=== PATIENT | female | born 1960 | race Caucasian/White ===

== ENCOUNTER 2019-05-16 10:43 | Observation (INO) ==
[2019-05-16 12:03] LABS: BASO# 0.01 X1000 (0.0-0.2); BASO% 0.1 % (0.0-0.8); EOS# 0.05 X1000 (0.0-0.7); EOS% 0.7 % (0.0-10.0); HEMATOCRIT 39.8 % (37.0-47.0); HEMOGLOBIN 13.5 g/dL (12.0-16.0); LYMPH# 2.15 X1000 (1.2-3.4); LYMPH% 30.4 % (20.5-51.1); MCH 28.3 PG (27-31); MCHC 33.9 g/dL (33-37); MCV 83.4 FL (81-99); MONO# 0.59 X1000 (0.11-0.59); MONO% 8.3 % (1.7-9.3); MPV 10.8 FL (7.4-10.4); NEUT# 4.27 X1000 (1.4-6.5); NEUT% 60.5 % (42.2-75.2); PLT 246 X1000 (130-400); RBC 4.77 XMIL (4.2-5.4); RDW 13.2 % (11.5-14.5); WBC 7.07 X1000 (4.8-10.8)
[2019-05-16 12:27] LABS: AGAP 14; ALB/GLOB RATIO 1.3; ALBUMIN 4.2 g/dL (3.5-5.0); BUN 11 mg/dL (8-22); CALCIUM 8.6 mg/dL (8.8-10.2); CHLORIDE 101 mmol/L (98-107); COSMO 280; CREATININE 0.7 mg/dL (0.5-0.9); ESTIMATED GFR > 60; GLUCOSE 90 mg/dL (70-104); GOT 16 U/L (10-30); GPT 17 U/L (10-36); POTASSIUM 3.9 mmol/L (3.5-5.1); SODIUM 141 mmol/L (136-145); TCO2 26 mmol/L (25-35); TOTAL BILIRUBIN 0.76 mg/dL (0.20-1.00); TOTAL PROTEIN 7.4 g/dL (6.3-8.3)
[2019-05-16 12:49] LABS: URINE SOURCE CLEAN CATCH
[2019-05-16 12:52] LABS: BILIRUBIN URINE NEGATIVE (NEGATIVE); BLOOD URINE SMALL (NEGATIVE); COLOR YELLOW; GLUCOSE URINE NEGATIVE (NEGATIVE); KETONE URINE TRACE mg/dL (NEGATIVE); LEUKOCYTES URINE LARGE (NEGATIVE); NITRITE URINE NEGATIVE (NEGATIVE); PH URINE 5.5; PROTEIN URINE 30 mg/dL (NEGATIVE); SP GRAVITY URINE 1.018; TURBIDITY URINE HAZY (CLEAR); UROBILINOGEN URINE NORMAL (NORMAL)
[2019-05-16 13:04] LABS: UR EPITHELIAL CELLS <10 /HPF (<10); URINE BACTERIA NEGATIVE /HPF; URINE RBC <10 /HPF (<10); URINE WBC TNTC /HPF (<10)
[2019-05-16 13:05] LABS: URINE YEAST NONE SEEN
[2019-05-16 13:37] LABS: ALKALINE PHOSPHATASE 77 U/L (32-104)
--- NOTE | 2019-05-16 14:37 | Diag Imaging Result Doc PS360 ---
EXAM: CT ABD/PELVIS W/IV CONT ONLY 05/16/2019 HISTORY: LLQ pain, recent colonoscopy TECHNIQUE: This exam was performed using automated exposure control, adjustment of mA or kV according to patient size, and/or use of iterative reconstruction technique. COMMENT: There is a calcified pleural-based nodule in the right lower lobe. There are no previous studies. The aorta is normal in caliber. The mesenteric and renal arteries are patent. There is no evidence of significant adenopathy. There are no apparent gallstones. There is no evidence of nephrolithiasis. The liver, spleen, adrenal glands, and pancreas are within normal limits. There are multiple parapelvic cysts present in the left kidney. There is no evidence of hydronephrosis or mass. There is diverticulosis in the descending and sigmoid colon. Some inflammatory change is seen around the distal descending colon. Pelvis: There is an enlarged and inflamed appearing diverticulum arising from the sigmoid colon which is in direct contact with the dome of the urinary bladder. There is gas within the bladder. The appendix is surgically absent. There is some mucosal thickening present in the distal sigmoid of uncertain etiology. There has been hysterectomy. There is degenerative facet arthropathy in the lumbar spine particularly at the L5-S1 level. There are degenerative disc changes. IMPRESSION: Diverticulosis coli with diverticulitis in the distal descending and sigmoid colon and possible colovesical fistula. Electronically signed by Aris Cotto 05/16/2019 2:35 PM
--- NOTE | 2019-05-16 15:03 | PROVIDER DOCUMENTATION ---
This chart was entered by Akosua Darling Scribe, acting as scribe for Juve Ladd MD. HPI-Abdominal Pain/GI Problem - General Chief Complaint: Abdominal Pain Stated Complaint: LEFT SIDE PAIN Time Seen by Provider: 05/16/19 11:07 Source: patient Home Medications: Home Medication List Medication Instructions Recorded Confirmed Last Taken Type Amoxicillin [Amoxil] 05/16/19 05/16/19 Unknown History - History of Present Illness-ABD Nature of Presenting Problems: 58 yowf presents to the ed with c/o LLQ pain and was recently dx with UTI and is on ABX, pt was seen by dr sellers on 05/13/19 and had colonscopy and polectomy done. pt sts onset of LLQ p[ain was this am and called dr sellers office and was told to come to ed for a ct. pt has noted since sx decreased appetiite and diarrhea but thinks that is due to abx. pt on examis nontoxic in appearance and describes pain as a soreness to LLQ Abdominal Pain Onset Location: reports: LLQ Pain Radiation: reports: LUQ Quality of Pain: reports: aching (soreness) Severity in ED: reports: mild Onset/Duration: reports: this morning Timing: reports: still present, constant Activities at Onset: reports: other (recent sx) Exposure to sick contacts?: No Modifying Factors: improves with: rest. worse with: movement, palpation Associated Symptoms: reports: diarrhea, loss of appetite. denies: back/neck pain, chest pain, cough, diaphoresis, fever/chills, headaches, shortness of b reath, vomiting, weakness, trouble walking Last BM: this morning Dark Stools Present?: reports: none noticed Rectal Bleeding: reports: none # of Diarrhea Episodes: 2 (on current abx) Rectal Pain: reports: none # of Vomiting Episodes: 0 Emesis Description: reports: none Bruising or Bleeding Gums?: No Similar Symptoms Previously?: Yes Recently seen or treated by another doctor?: Yes (dr sellers 05/13/19) Review of Systems - Adult - REVIEW OF SYSTEMS - ADULT Constitutional: denies: chills, fever Eyes: reports: no symptoms reported Ears, Nose, Mouth & Throat: reports: no symptoms reported Cardiovascular: denies: chest pain, palpitations, syncope Respiratory: denies: cough, shortness of breath, wheezing Gastrointestinal: reports: see HPI, abdominal pain, poor appetite. denies: nausea, vomiting Genitourinary: reports: see HPI, frequent UTI's Musculoskeletal: reports: no symptoms reported Integumentary: reports: no symptoms reported Neurological: denies: dizziness/vertigo, headache/migraines Psychiatric: reports: no symptoms reported Endocrine: reports: no symptoms reported Hematologic/Lymphatic: reports: no symptoms reported Allergic/Immunologic: reports: no symptoms reported All Other Systems: Reviewed and Negative Past History - Adult - PAST MEDICAL HISTORY-ADULT Review of Records: reports: Old Records Reviewed, Nursing Assessment Review, Medications Reviewed, Social history reviewed & non-contributory. Major Childhood Illnesses: reports: denies history Cardiovascular: reports: denies history Respiratory: reports: denies history Gastrointestinal: reports: denies history Obstetrical/Gynecological: reports: denies history Genitourinary: reports: denies history Musculoskeletal: reports: denies history Hand Dominance: Right Handed Neurological: reports: denies history Psychiatric: reports: denies history Endocrine/Immune: reports: denies history Other Conditions: reports: denies history - PRIOR SURGERIES/PROCEDURES Surgical/Procedure History: reports: recent surgery (had colonscopy and polpectomy on 05/13/19) - IMMUNIZATION STATUS Childhood Immunizations: See Nurse Assessment Flu Vaccine: See Nurse Assessment - FAMILY HISTORY Family History: reviewed, not pertinent - SOCIAL HISTORY Smoking: denies Substance Use: denies Living Situation: family Physical Exam-General - PHYSICAL EXAM-ADULT Initial Vital Signs Reviewed: Yes - CONSTITUTIONAL General Appearance: alert, mild distress, obese - EYES Eyes: PERRL/EOMI, pink conjunctivae - HEAD, EARS, NOSE, MOUTH & THROAT HENMT: normocephalic/atraumatic, moist mucous membranes, normal ENT inspection - NECK Neck: non-tender, full range of motion, supple, normal inspection - RESPIRATORY Respiratory: chest non-tender, lungs clear, normal breath sounds - CARDIOVASCULAR Cardiovascular: normal peripheral pulses, regular rate, rhythm - GASTROINTESTINAL (ABDOMEN) Abdominal Exam: normal bowel sounds, soft, no organomegaly, no pulsatile mass, guarding (LLQ), tenderness (LLQ). negative: distended, rigid, rebound - LYMPHATIC Lymphatic: no adenopathy - MUSCULOSKELETAL Back Exam: normal inspection, no CVA tenderness, no vertebral tenderness Extremity: normal range of motion, non-tender, normal inspection, no pedal edema , no calf tenderness, normal capillary refill - SKIN Integumentary: normal color, normal turgor, warm/dry - NEUROLOGIC Neurologic: grossly normal, no motor/sensory deficits - PSYCHIATRIC Psych/Mental Status: normal mood/affect, normal thought content, normal thought process, oriented x 3 Progress - PLAN OF CARE/RESULTS Progress/Plan/Lab Results: Vital Signs - 8 hr 05/16/19 10:46 Temperature 98 F Pulse Rate 75 Respiratory Rate 20 Blood Pressure 144/94 O2 Sat by Pulse Oximetry 97 Laboratory Results - last 24 hr 05/16/19 05/16/19 11:06 11:06 WBC 7.07 RBC 4.77 Hgb 13.5 Hct 39.8 MCV 83.4 MCH 28.3 MCHC 33.9 RDW Std Deviation 13.2 Plt Count 246 MPV 10.8 H Immature Gran % (Auto) 0.0 Neut % (Auto) 60.5 Lymph % (Auto) 30.4 [place] % (Auto) 8.3 Eos % (Auto) 0.7 Baso % (Auto) 0.1 Immature Gran # (Auto) 0.00 Neut # (Auto) 4.27 Lymph # (Auto) 2.15 [place] # (Auto) 0.59 Eos # (Auto) 0.05 Baso # (Auto) 0.01 Sodium 141 Potassium 3.9 Chloride 101 Carbon Dioxide 26 Anion Gap 14 BUN 11 Creatinine 0.7 Estimated GFR/1.73 m2 > 60 BUN/Creatinine Ratio 16 Glucose 90 Calculated Osmolality 280 Calcium 8.6 L Total Bilirubin 0.76 AST 16 ALT 17 Total Protein 7.4 Albumin 4.2 Globulin 3.2 Albumin/Globulin Ratio 1.3 Orders Category Date Time Status CT ABD/PELVIS W/IV CONT ONLY [CT] Stat Exams 05/16/19 11:25 Ordered CBC WITH DIFF [HEME] Stat Lab 05/16/19 11:06 Completed COMPREHENSIVE METABOLIC PANEL [CHEM] Stat Lab 05/16/19 11:06 Results URINALYSIS W/POSS RFLX CULT [URINALYSIS] Stat Lab 05/16/19 11:25 Uncollected Result Diagrams: 05/16/19 11:06 05/16/19 11:06 - REASSESSMENT Reassessment #1 Time Reassessed: 12:34 (pt is resting in bed in no distress) Status: improving Reassessment #2 Time Reassessed: 14:40 (pt is resting in bed) Status: unchanged - CT/MRI 1 CT Study: Abdomen, Pelvis Impression: See EMR Report (EXAM: CT ABD/PELVIS W/IV CONT ONLY 05/16/2019 HISTORY: LLQ pain, recent colonoscopy TECHNIQUE: This exam was performed using automated exposure control, adjustment of mA or kV according to patient size, and/or use of iterative reconstruction technique. COMMENT: There is a calcified pleural-based nodule in the right lower lobe. There are no previous studies. The aorta is normal in caliber. The mesenteric and renal arteries are patent. There is no evidence of significant adenopathy. There are no apparent gallstones. There is no evidence of nephrolithiasis. The liver, spleen, adrenal glands, and pancreas are within normal limits. There are multiple parapelvic cysts present in the left kidney. There is no evidence of hydronephrosis or mass. There is diverticulosis in the descending and sigmoid colon. Some inflammatory change is seen around the distal descending colon. Pelvis: There is an enlarged and inflamed appearing diverticulum arising from the sigmoid colon which is in direct contact with the dome of the urinary bladder. There is gas within the bladder. The appendix is surgically absent. There is some mucosal thickening present in the distal sigmoid of uncertain etiology. There has been hysterectomy. There is degenerative facet arthropathy in the lumbar spine particularly at the L5-S1 level. There are degenerative disc changes. IMPRESSION: Diverticulosis coli with diverticulitis in the distal descending and sigmoid colon and possible colovesical fistula. Electronically signed by Aris Cotto 05/16/2019 2:35 PM 05/16/19 1435 Interpreting Physician: Aris Cotto MD Dictated Date/Time: 05/16/19 1425 cc: Juve Ladd MD; Marzena Breaux) - CONSULTS/PCP/HOSPITALIST Notification #1 *Consult/PCP/Hospitalist*: dr sellers pt but spoke with dr jauregui Time Discussed: 14:55 (dr jauregui suggest pt be admitted to [facility];italist and f/u with urology) Reason/Comments: phone consult #2 Consult: hospitalist-[place] Reason/Comments: will consult with urology Consult Disposition: Admit Departure - Departure Date of Disposition Decision: 05/16/19 Time of Disposition Decision: 14:59 DIAGNOSIS: Diverticulitis Disposition: ADMITTED INPATIENT 09 Certified Medical Emergency: Emergent Condition: Good Referrals and Follow-Ups: Marzena Breaux CRNP [Primary Care Provider] - - Critical Care Note This patient required my direct & personal management of CC.: No Attestation - Physician/ EMILIA Attestation Patient care was provided by Advanced Practice Provider:: No The physician spent face to face time with patient:: Yes Advanced Practice Provider documentation review:: Supervising physician onsite and consulted in the evaluation and care of this patient. The physician did have a face to face encounter with the patient. This chart was documented by the indicated scribe, (Akosua Darling Scribe) and accurately reflects the services I performed and decisions made by me, Juve Ladd MD, as attested by the provider's signature.
[2019-05-16] MEDS ORDERED: ZOFRAN IV PRN (16:39)
[2019-05-16] MEDS ORDERED: TYLENOL PO PRN (16:39)
[2019-05-16] MEDS ORDERED: LEVAQUIN PO SCH (17:00)
[2019-05-16] MEDS ORDERED: MORPHINE IV PRN (17:46)
--- NOTE | 2019-05-16 17:55 | HISTORY AND PHYSICAL ---
LINSEED OIL BOILER: Marzena Breaux. CHIEF COMPLAINT: Left side abdominal pain. HISTORY OF PRESENT ILLNESS: Ms. Schilling is a 58-year-old female who presents to the ER today with complaints of left side abdominal pain that started increasingly worsening over the past 24 hours. The patient states that she had a colonoscopy done on Sunday by Dr. Apodaca, and was noted to have polyps and had a polypectomy done. The patient states that she called Dr. Apodaca today when she started having the pain, and was notified by Dr. Apodaca's office that she needed to come to the ER and have a CAT scan performed. The patient states that she also has chronic UTIs and has been on and off different medications for her UTIs. She was on Cipro up until about a week ago and then was switched over to Macrobid. She is on Macrobid 100 mg p.o. b.i.d. at this present time. The patient complains of left lower abdominal pain that is not present at this time, but was present this a.m. States that it is tubular splitting machine tender in the area, feels kind of bruised. The patient denies any shortness of breath, dizziness. States that she does have diarrhea daily because she has been taking MiraLAX. The patient states that she has been having abdominal problems for the past 4 years. She denies any blood in her stool that is notable; however, her business objects did perform a stool for occult blood and it was positive. Dr. Apodaca was notified of this and he said that was a normal finding since her polypectomy. The patient does not complain any other significant problems at this time. The patient states that a year ago, Dr. Bal did a vaginal scope on her and it was noted to be normal. The patient states she was having air pass through her bladder at that time. The patient states that she did have some air pass through her bladder about a week ago when she was taking her Cipro, and at that time she went to see her doctor and they switched her over to Macrobid. CT of the abdomen in the ER she did show diverticulosis coli with diverticulitis in the distal descending and sigmoid colon and possible colovesical fistula. PAST MEDICAL HISTORY: 1. UTI. 2. Multiple colonoscopies over the past 4 to 5 years for abdominal pain. 3. Constipation. 4. Hyperlipidemia. 5. Kidney stones. PAST SURGICAL HISTORY: 1. Colonoscopy. 2. x2, one in 1986 and one in 1988. 3. Hysterectomy in 1995. 4. Oophorectomy in 2000. 5. Vaginal scope [address] Bal SOCIAL HISTORY: Patient lives here in the [facility]. She denies any smoking, alcohol, or drug abuse. 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 FAMILY HISTORY: Significant for heart disease except in her mother who from a PE after surgery. ALLERGIES: No known drug allergies. MEDICATIONS: 1. Macrobid 100 mg p.o. b.i.d. 2. Rosuvastatin 10 mg p.o. at bedtime. 3. Fish oil 1 tablet daily. 4. Vitamin D 1 tablet daily. 5. Omeprazole 40 mg p.o. daily. 6. MiraLAX 17 g packet p.o. daily. LABS: White blood cell count 7.07, hemoglobin 13.5, hematocrit 39.8, platelet count 246,000. Sodium 141, potassium 3.9, carbon dioxide 26, BUN 11, creatinine 0.7, GFR greater than 60, glucose 90, calcium 8.6, AST 16, ALT 17. Urinalysis positive for protein, trace ketones, small amount of blood, large amount of leukocytes, large amount of white blood cells. CT scan shows diverticulosis in the descending and sigmoid colon, inflammatory changes seen around the distal descending colon, gas within the urinary bladder. Impression shows diverticulosis coli with diverticulitis in the distal descending and sigmoid colon and possible colovesical fistula. REVIEW OF SYSTEMS: A 12 point review of systems was performed. All were negative except what is stated above in HPI. PHYSICAL EXAMINATION: VITAL SIGNS: Temperature 98 degrees, pulse rate 75, respiratory rate 20, blood pressure 120/83, O2 saturation 96% on room air. GENERAL: This is a well nourished 58-year-old female, in no acute distress at present time, lying in the ER stretcher. HEENT: Atraumatic, normocephalic. Pupils equal, round, reactive to light. Sclerae anicteric. Mucous membranes are moist. NECK: Supple. No lymphadenopathy. Trachea is midline. No JVD, thyromegaly, or bruits noted. CARDIOVASCULAR: Regular rate and rhythm. No murmurs, gallops, or rubs appreciated. RESPIRATORY: Lung sounds are clear with equal chest excursion. Respirations are nonlabored with no accessory muscle usage. GI: Abdomen is soft, nontender, nondistended, with bowel sounds present x4. NEUROLOGIC: The patient is awake, alert, oriented x4. Cranial nerves intact. MUSCULOSKELETAL: Full distal strength noted. No abnormalities or deformities noted. EXTREMITIES: No clubbing, cyanosis, or edema noted. DP and PT pulses are present and palpable. SKIN: Warm, dry, intact. No rashes, bruises. Turgor is good. No diaphoresis noted. ASSESSMENT: 1. Colovesical fistula. 2. Urinary tract infection. 3. Diverticulosis with diverticulitis in the descending colon. 4. Hyperlipidemia. PLAN: 1. We will admit this patient to the medical floor. 2. We will place this patient on telemetry. 3. We will start the patient on Flagyl and Levaquin for the diverticulitis. 4. We will monitor her pain with p.r.n. pain medications. 5. Start the patient on intravenous fluid normal saline at 75 mL an hour. 6. We will consult Dr. Darden and Dr. Thrasher for colovesicular fistula. 7. Repeat labs in the a.m. Dictated by PAM Palafox for Roderick Schwartz MD cc: MD Milton Gutierrez MD Dr. Hughes Dr. Walker [facility]
--- NOTE | 2019-05-16 18:15 | PROGRESS NOTE ---
DATE: 05/16/2019 CHIEF COMPLAINT: Abdominal pain. HISTORY OF PRESENT ILLNESS: This is a 58-year-old female with history of recurrent UTIs, who comes in from home with abdominal pain. She was seen by her PCP, Marzena Breaux. She was seen by Dr. Apodaca. She apparently just had a colonoscopy about less than a week ago and had colon polyps. They were resected. She had a little bit of spotting afterwards and now had pain. Obviously, there was concern over a perforation. She was sent to the ER. Her CT showed diverticulitis and there was a concern over a possible fistula between the bladder and the colon. She does not present a very good history for Crohn's. She has had numerous abdominal surgeries, IT SERVICE DELIVERY MANAGER surgeries. She apparently had a cystoscopy in the past, did not see a fistula then. Her colonoscopy did not show a fistula which is unusual, but there is concern over that. In any case, she has been treated for a UTI. OBJECTIVE: abdomen: She does have some pain in her left lower quadrant. No rebound. No guarding. She is hungry. PLAN: Admit for: 1. Acute diverticulitis. Continue IV antibiotics, pain control. Advance diet slowly and follow. 2. Possible colovesicular fistula. We will get a CT cystogram of her bladder just to see if there is a fistula and then will deal with it accordingly. We have consulted Urology and General Surgery to that end, and we will follow. This is a [id number] encounter note with Alyssa Peña. cc: MD Milton Gutierrez MD Amanda K. Anderson, CRNP
[2019-05-16] MEDS: NS 1,000 ML IV SCH (18:32)
[2019-05-16] MEDS: FLAGYL 500 MG/NS 500 MG/100 ML IVPB IV SCH (18:33)
--- NOTE | 2019-05-16 19:36 | GENERAL SURGERY CONSULTATION ---
DATE: 05/16/2019 HISTORY OF PRESENT ILLNESS: Ms. Schilling is 58 years old and was admitted today with some left- sided abdominal pain. She has been having this pain for about a month now. She has known diverticular disease and has had intermittent episodes, but this episode has lasted longer. Additionally, she has had pneumaturia over the past few days. She has had it in the past before, but has never been proven to have a colovesical fistula. She does have recurrent UTIs. She has been treated with quinolone, but now is on Macrobid. She also has a history of hyperlipidemia and kidney stones. PREVIOUS SURGERY: Includes: 1. x2. 2. Abdominal hysterectomy. 3. Abdominal oophorectomy. 4. Apparently a cystoscopy by Dr. Bal. SOCIAL HISTORY: She denies smoking, alcohol, or drug use. She does work as an customer solutions coordinator. FAMILY HISTORY: Pertinent for heart disease. MEDICATIONS: Include: 1. Macrobid. 2. Rosuvastatin 10 mg at bedtime. 3. Fish oil 1 daily. 4. Vitamin D 1 daily. 5. Omeprazole 40 mg daily. 6. MiraLAX 17 g packets daily. ALLERGIES: She has no known drug allergies. REVIEW OF SYSTEMS: Pertinent for the pneumaturia, left lower quadrant abdominal pain, some dysuria. PHYSICAL EXAMINATION: Vital Signs: She is afebrile, heart rate is 69, blood pressure is 156/80. Neck: No cervical adenopathy. No carotid bruits are heard. Lungs: Bilateral breath sounds. Heart: Regular rate and rhythm. Abdomen: Soft. She is tender in the left lower quadrant. Extremities: She has no peripheral edema. Pedal pulses are present. She is awake, alert, and oriented. DATA: White count is 7000, hemoglobin 13.5, hematocrit 39.8. Chemistry is fine. Urinalysis shows a large number of leukocytes, too numerous to count white cells. CT scan is suggestive for a colovesical fistula with inflammation of the sigmoid near the dome of the bladder. ASSESSMENT: 1. Colovesical fistula. 2. Diverticular disease with acute inflammation. RECOMMENDATION: Sigmoid colon resection after appropriate bowel prep, with a stitch placed in the bladder if needed. I have discussed this with her and I told her that she would continue to have symptoms if she did not have this fixed. She is reflecting. She has some activities to take care of in her life this week, including her work and vacation. This can be done electively in the not too-distant future if she has to complete these other life activities. Thanks for the opportunity to see her. cc: MD Milton Charles MD
[2019-05-16] MEDS: LEVAQUIN 750 MG/D5W 750 MG/150 ML IVPB IV SCH (20:29)
[2019-05-17] MEDS: FLAGYL 500 MG/NS 500 MG/100 ML IVPB IV SCH ×5 (00:41→23:43)
[2019-05-17] MEDS: PRILOSEC PO SCH ×3 (05:55→20:51)
[2019-05-17 07:36] LABS: BASO# 0.02 X1000 (0.0-0.2); BASO% 0.3 % (0.0-0.8); EOS# 0.09 X1000 (0.0-0.7); EOS% 1.5 % (0.0-10.0); HEMATOCRIT 38.9 % (37.0-47.0); HEMOGLOBIN 13.3 g/dL (12.0-16.0); LYMPH# 1.59 X1000 (1.2-3.4); LYMPH% 27.2 % (20.5-51.1); MCH 28.7 PG (27-31); MCHC 34.2 g/dL (33-37); MCV 83.8 FL (81-99); MONO# 0.53 X1000 (0.11-0.59); MONO% 9.1 % (1.7-9.3); MPV 10.8 FL (7.4-10.4); NEUT# 3.61 X1000 (1.4-6.5); NEUT% 61.9 % (42.2-75.2); PLT 215 X1000 (130-400); RBC 4.64 XMIL (4.2-5.4); RDW 13.3 % (11.5-14.5); WBC 5.84 X1000 (4.8-10.8)
[2019-05-17 07:51] LABS: INR 0.97; PROTIME 13.7 Seconds (11.0-16.0)
[2019-05-17 08:10] LABS: AGAP 13; BUN 11 mg/dL (8-22); CALCIUM 8.5 mg/dL (8.8-10.2); CHLORIDE 104 mmol/L (98-107); COSMO 282; CREATININE 0.7 mg/dL (0.5-0.9); ESTIMATED GFR > 60; GLUCOSE 94 mg/dL (70-104); POTASSIUM 3.9 mmol/L (3.5-5.1); SODIUM 142 mmol/L (136-145); TCO2 25 mmol/L (25-35)
--- NOTE | 2019-05-17 09:01 | GENERAL SURGERY PROGRESS NOTE ---
DATE: 05/17/2019 SUBJECTIVE: It is 8:45 in the morning. Ms. Schilling is sitting up. She took her clear liquid satisfactorily. Says her left-sided abdominal pain is now resolved. She is afebrile with stable hemodynamics. She says she cannot have surgery until after her vacation. We will advance her to full liquids and see how she does with that. If she continues to do well, my impression is that we can continue to advance her diet and discharge her home on antibiotic therapy until she is ready for surgery. cc: MD Milton Charles MD
--- NOTE | 2019-05-17 13:47 | CONSULTATION ---
DATE OF CONSULTATION: 05/17/2019 ATTENDING AND REFERRING PHYSICIAN: Hospitalist. HISTORY OF PRESENT ILLNESS: This 58-year-old female was admitted with left-sided abdominal pain and suprapubic area pain. The patient's CT scan was consistent with a colovesical fistula. Also, diverticulitis. The patient states she has had pneumaturia, the first time over a year ago. She states her GROUP ROOMS COORDINATOR physician did a cystoscopic exam, and did not see anything really unusual. The patient states her abdominal pain is much better after starting IV antibiotics. She still has some suprapubic area pain, especially in the bladder area. She has a remote history of kidney stones. She has been taking several antibiotics for urinary tract infections. The patient has had no hematuria. PAST MEDICAL HISTORY: History of renal lithiasis, elevated cholesterol, history of diverticular disease. CURRENT MEDICATIONS: Documented on the chart. PAST SURGICAL HISTORY: Colonoscopy with polyp excision, x2, left extracorporeal shockwave lithotripsy, hysterectomy with appendectomy, oophorectomy, wisdom teeth extraction. SOCIAL HISTORY: No tobacco or alcohol use. ALLERGIES: No known drug allergies. REVIEW OF SYSTEMS: She has no history of diabetes, heart disease, strokes, seizures or recent pulmonary problems. PHYSICAL EXAMINATION: General: An obese, age apparent, normally developed, white female, oriented in all ways and cooperative. HEENT: Normal for age. Lungs: Clear. Cardiovascular: Regular rate and rhythm. Abdomen: Obese, soft. Mild tenderness in the left lower quadrant and suprapubic area. No guarding or rebound. : Normal external female. Atrophic mucosa. Bladder is tender with palpation. No adnexal masses. Surgically absent cervix and uterus. Extremities: No clubbing, cyanosis, or edema. Neurologic: No focal deficits. LABORATORY EVALUATION: Has a white count of 5.84, hemoglobin 13.3, hematocrit 38.9, platelets 215,000. Serum electrolytes are normal. BUN 11, creatinine 0.7. Urinalysis has large leukocytes on the dipstick, ggb-cvnplbil-gn-count white cells in the urine. Negative for bacteria. IMAGING: CT scan is as noted in the HPI. Also, there were no kidney stones or hydronephrosis noted. IMPRESSION: Diverticulitis with a probable colovesical fistula. Recommend continuing intravenous antibiotics until the suprapubic area pain has completely resolved. Discussed with patient that the treatment is excision of the diseased portion of the colon and by removing that from the bladder, the bladder usually heals itself. Thank you for this consultation. cc: MD Milton Carrillo MD
[2019-05-17] MEDS: NS 1,000 ML IV SCH (16:08)
--- NOTE | 2019-05-17 17:56 | PROGRESS NOTE ---
DATE: 05/17/2019 SUBJECTIVE: Patient has no major complaints. Pain is better. She feels better. OBJECTIVE: Blood pressure is 136/75, heart rate 96, respiratory 18, temperature 98 degrees.Cardiovascular: Regular rate and rhythm. Pulmonary: Bilateral breath sounds clear to auscultation. GI: Soft, nontender, nondistended. Bowel sounds are positive. LABORATORY DATA: Her white count is down to 5, was never really that elevated, but in any case. PROBLEM LIST: 1. Acute diverticulitis, sigmoid diverticulitis. She is on intravenous antibiotics. She seems to be doing okay. We have advanced her diet. 2. 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 Dr. Thrasher and Dr. Darden have evaluated. Price feels like she will likely need surgery. Patient wants to delay that for a bit or she is considering her options but anticipate that will need to be done but certainly could be done electively I think from what Dr. Thrasher is saying. DISPOSITION: I think if she is doing better tomorrow, anticipate discharge tomorrow. cc: MD Milton Gutierrez MD
[2019-05-17] MEDS: LEVAQUIN 750 MG/D5W 750 MG/150 ML IVPB IV SCH (20:49)
[2019-05-17] MEDS ORDERED: FISH OIL CONCENTRATE PO SCH (21:00)
[2019-05-17] MEDS ORDERED: VITAMIN D PO SCH (21:00)
[2019-05-17] MEDS ORDERED: NON-FORMULARY MED (Omeprazole 40 MG) PO SCH (21:00)
[2019-05-17] MEDS ORDERED: CRESTOR PO SCH (21:00)
[2019-05-18] MEDS: FLAGYL 500 MG/NS 500 MG/100 ML IVPB IV SCH ×2 (05:57→13:20)
[2019-05-18] MEDS: PRILOSEC PO SCH (06:01)
[2019-05-18 06:48] LABS: BASO# 0.03 X1000 (0.0-0.2); BASO% 0.6 % (0.0-0.8); EOS# 0.04 X1000 (0.0-0.7); EOS% 0.8 % (0.0-10.0); HEMATOCRIT 39.5 % (37.0-47.0); HEMOGLOBIN 13.3 g/dL (12.0-16.0); IMM GRAN# 0.02 X1000 (0.0-0.04); IMM GRAN% 0.4 % (0.0-0.5); LYMPH% 30.2 % (20.5-51.1); MCHC 33.7 g/dL (33-37); MCV 86.2 FL (81-99); MONO# 0.53 X1000 (0.11-0.59); MONO% 10.7 % (1.7-9.3); MPV 10.6 FL (7.4-10.4); NEUT# 2.84 X1000 (1.4-6.5); NEUT% 57.3 % (42.2-75.2); PLT 232 X1000 (130-400); RBC 4.58 XMIL (4.2-5.4); RDW 13.4 % (11.5-14.5); WBC 4.96 X1000 (4.8-10.8)
[2019-05-18 06:59] LABS: AGAP 14; BUN 7 mg/dL (8-22); CALCIUM 8.8 mg/dL (8.8-10.2); CHLORIDE 105 mmol/L (98-107); COSMO 282; CREATININE 0.7 mg/dL (0.5-0.9); ESTIMATED GFR > 60; GLUCOSE 115 mg/dL (70-104); POTASSIUM 3.6 mmol/L (3.5-5.1); SODIUM 142 mmol/L (136-145); TCO2 23 mmol/L (25-35)
[2019-05-18 07:25] VITALS: BP 138/84
--- NOTE | 2019-05-18 07:38 | GENERAL SURGERY PROGRESS NOTE ---
DATE: 05/18/2019 Ms. Schilling had some nausea this morning. She does not feel quite as good. She remains afebrile, however, with stable hemodynamics. Really, her abdomen is nontender. Her primary complaint today is simply nausea. I answered her questions today about the potential of surgery. After she is discharged, she is to follow up with me in my office for further discussion to schedule surgery. cc: MD Milton Charles MD
[2019-05-18] MEDS ORDERED: MIRALAX PO SCH (09:00)
[2019-05-18] MEDS: NS 1,000 ML IV SCH ×2 (10:24→10:25)
--- NOTE | 2019-05-18 17:14 | DISCHARGE SUMMARY ---
ADMISSION DATE: 05/16/2019 DISCHARGE DATE: 05/18/2019 DISCHARGE DIAGNOSES: 1. Acute diverticulitis. 2. Likely colovesicular fistula. CONSULTATIONS: Surgery, Dr. Thrasher. Urology, Dr. Darden. PROCEDURES: None. This is a 58-year-old female admitted initially on the for diverticulitis and a colovesicular fistula, UTI. She had been on antibiotics previously; I think Macrobid. She was placed on Levaquin and Flagyl and tolerated it without difficulty. Surgery recommended surgical correction of sigmoid colon resection, but patient declined to get that done immediately. She wanted to wait and do it as an outpatient, which it was felt that it could be done electively. Her pain improved with antibiotics. Urology was consulted and felt that antibiotics and surgical treatment would be necessary. There was nothing from a urological standpoint. Once the diverticulitis felt to be removed, fistula would likely resolve. In any case, patient stabilized. She had no white count. She was tolerating p.o. without difficulty and discharged on the . She did not tolerate Flagyl orally, so we changed her to Augmentin 875 q.12 h., and we will follow accordingly. OTHER DISCHARGE MEDICATIONS: Fish oil, Prilosec 40, Crestor 10 at bedtime, vitamin D3 of 1000 units daily, ibuprofen as needed, Macrobid will need to be resumed when she stops her Augmentin up until she can get her discharge, MiraLAX daily. She is also told to take Metamucil once her bowels regulated, Zofran 4 q.6 h. FOLLOW-UP: She will need to follow up with Dr. Thrasher in 1 to 2 weeks and her PCP in 1 2 weeks. DISCHARGE INSTRUCTION: Return for worsening pain, nausea/vomiting, symptoms of that nature. cc: MD Milton Gutierrez MD
== END 2019-05-18 17:22 | disposition home or self-care (01) ==
LOC: ED 10:43 → INTOOBSV 10:44 → 4N 10:44
PROVIDERS: ADMIT Internal Medicine; ATTEND Internal Medicine
CPT/HCPCS: 74177; 80048; 80053; 81001; 85025; 85610; 87088; A9270; J1956; J7030; Q9967; S0030

== ENCOUNTER 2019-07-03 05:16 | Inpatient (IN) ==
[2019-06-24 09:47] LABS: HEMATOCRIT 40.6 % (37.0-47.0); HEMOGLOBIN 13.8 g/dL (12.0-16.0); MCH 28.6 PG (27-31); MCV 84.2 FL (81-99); RBC 4.82 XMIL (4.2-5.4); RDW 13.9 % (11.5-14.5); WBC 5.57 X1000 (4.8-10.8)
[2019-06-24 10:08] LABS: AGAP 9; BUN 13 mg/dL (8-22); CALCIUM 8.9 mg/dL (8.8-10.2); CHLORIDE 105 mmol/L (98-107); COSMO 279; CREATININE 0.9 mg/dL (0.5-0.9); ESTIMATED GFR > 60; GLUCOSE 127 mg/dL (70-104); POTASSIUM 4.6 mmol/L (3.5-5.1); SODIUM 139 mmol/L (136-145); TCO2 25 mmol/L (25-35)
[2019-07-03] MEDS ORDERED: ENTEREG ONE (05:53)
[2019-07-03] MEDS ORDERED: TRANSDERM-SCOP ONE (05:53)
[2019-07-03] MEDS ORDERED: PEPCID ONE (05:53)
[2019-07-03] MEDS ORDERED: REGLAN ONE (05:53)
[2019-07-03] MEDS ORDERED: LR 1,000 ML ONE ×2 (05:54→06:39)
[2019-07-03] MEDS ORDERED: INVANZ 1 GM/NS 1 GM/50 ML IVPB ONE (05:54)
[2019-07-03] MEDS ORDERED: SENSORCAINE 0.25%/EPI 1:200,000 ONE (06:39)
[2019-07-03] MEDS ORDERED: XYLOCAINE-MPF 2% ONE (06:43)
[2019-07-03] MEDS ORDERED: QUELICIN (DOSE) ONE (06:43)
[2019-07-03] MEDS ORDERED: DIPRIVAN 1% ONE (06:43)
[2019-07-03] MEDS ORDERED: VERSED ONE (06:53)
[2019-07-03] MEDS ORDERED: SODIUM CHLORIDE 0.9% 10 ML ONE (06:57)
[2019-07-03] MEDS ORDERED: MARCAINE 0.25% ONE (06:57)
[2019-07-03] MEDS ORDERED: EXPAREL 1.3% ONE (06:57)
[2019-07-03] MEDS ORDERED: NORCURON ONE (07:03)
[2019-07-03] MEDS ORDERED: FENTANYL ONE (07:18)
[2019-07-03] MEDS ORDERED: ZOFRAN ONE (08:54)
[2019-07-03] MEDS ORDERED: ROBINUL ONE (08:54)
[2019-07-03] MEDS ORDERED: NEOSTIGMINE ONE (08:54)
[2019-07-03] MEDS ORDERED: DECADRON ONE (08:54)
[2019-07-03] MEDS ORDERED: NS 1,000 ML ONE (09:36)
[2019-07-03] MEDS ORDERED: OFIRMEV 1000 MG/ISOTONIC SOLN 1,000 MG/100 ML BOTTLE ONE (09:36)
[2019-07-03] MEDS: DILAUDID ONE ×4 (09:49→10:19)
[2019-07-03] MEDS ORDERED: ZOFRAN IV PRN (10:58)
[2019-07-03] MEDS: NS 1,000 ML IV SCH ×2 (11:46→20:48)
--- NOTE | 2019-07-03 12:21 | OPERATIVE NOTE ---
PROCEDURE DATE: 07/03/2019 PROCEDURE: Laparoscopy; laparotomy and sigmoid colon resection. Repair of colovesical fistula. SURGEON: Dr. Alfredito Thrasher MD. FRAMER: Dimitri Shabazz and Debra Owen. PREOPERATIVE DIAGNOSIS: Colovesical fistula. POSTOPERATIVE DIAGNOSIS: Colovesical fistula. DESCRIPTION OF PROCEDURE: With satisfactory general endotracheal anesthesia was achieved, the patient was placed in Jakub stirrups. The abdomen is prepped and draped in a sterile fashion. We anesthetized the skin above the umbilicus, and dissected down to the main incision, and dissected down to the fascia. We scored the fascia, and introduced the 11 trocar. We insufflated through this trocar. We placed the patient in Trendelenburg. Upon evaluation, we realized that this colon was so intimately stuck to the back of the bladder we really could not do any mobilization because of that so I chose simply to abort further laparoscopy and switch to a laparotomy. We desufflated and removed our 11 trocar, and then made an incision from above the umbilicus around the umbilicus down to the pubis. We opened the abdomen in the skin incision. We then placed the patient in Trendelenburg. We used a Butler retractor to retract the small bowel cephalad, and then we began incising along the white line of Toldt laterally to mobilize the proximal sigmoid far away. We then incised the peritoneum to the right of the colon and identified the colon going deep into the pelvis. We then began approaching the attachment of the colon to the bladder, and we continued dissecting to this intimately stuck inflamed plane. We went through the diverticular, they were attached to the bladder. We stopped about half way, and scored the peritoneum on each side primarily on the right side of the colon, and identified the colon as it came up to the bladder. We then continued dissection and separation of the colon from the bladder until we completely the 2 structures. This then allowed us to clean off the proximal colon, and staple it with a JALEN 60 blue cartridge. We divided the mesentery with the LigaSure, and dissected distally until we reached an area in the distal sigmoid that was free of diverticula. It was completely below the bladder and not attached to the surrounding structures. So, we were satisfied that this would be the extent of our resection. We then proceeded to take off all the attached tissue to the back of the bladder until we basically reached the bladder muscle. There was no obvious hole in the bladder, but we closed that area with interrupted 2-0 Polysorb simple stitches. We placed 4 to 5 of those stitches to completely close the back wall of the bladder. We then had the colon laid out, and took the proximal colon, cleaned it off, and used 3-0 silks in a Lembert fashion in the back row from the proximal colon down to where we cleaned off the distal colon. We then amputated the diseased segment. Handed it off. We resected the staple line proximally. We then brought the two ends of the bowel together by tying the 3-0 silks that were placed in the seromuscular layer posteriorly. We then used a 3-0 Polysorb running locking stitch posteriorly, and changed to a [place] stitch anteriorly, and the final layer with interrupted 3-0 silks in a Lembert fashion. This thereby completed a 2 layered end to end closure. We changed gloves at this point, irrigated out the pelvis. I placed a Charles drain into the pelvis bringing it out in the right lower quadrant. We secured the drain at the skin level with 2-0 silk. We then took the patient out of Trendelenburg. There really was no undue tension on the closure or the anastomosis. We then proceeded to close the peritoneum with a running 2-0 chromic. We closed the fascia with running #2 Prolene. We irrigated out the subcutaneous tissue, and closed the skin with meredith. A sterile dressing was applied. She tolerated it well, and was sent to the recovery room in satisfactory condition. cc: Alfredito Thrasher MD
[2019-07-03] MEDS: BUPRENEX IV PRN (14:28)
[2019-07-03] MEDS: OFIRMEV 1000 MG/ISOTONIC SOLN 1,000 MG/100 ML BOTTLE IV SCH ×2 (17:06→22:46)
[2019-07-03 18:15] LABS: URINE SOURCE CATH
[2019-07-03 18:20] LABS: BILIRUBIN URINE NEGATIVE (NEGATIVE); BLOOD URINE MODERATE (NEGATIVE); COLOR YELLOW; GLUCOSE URINE NEGATIVE (NEGATIVE); KETONE URINE TRACE mg/dL (NEGATIVE); SP GRAVITY URINE 1.024; TURBIDITY URINE CLEAR (CLEAR); UR EPITHELIAL CELLS <10 /HPF (<10); URINE BACTERIA NEGATIVE /HPF; URINE RBC 20-40 /HPF (<10); URINE WBC <10 /HPF (<10)
[2019-07-03 18:21] LABS: LEUKOCYTES URINE NEGATIVE (NEGATIVE); NITRITE URINE NEGATIVE (NEGATIVE); PROTEIN URINE TRACE mg/dL (NEGATIVE); UROBILINOGEN URINE NORMAL (NORMAL)
--- NOTE | 2019-07-03 19:24 | GENERAL SURGERY PROGRESS NOTE ---
DATE: 07/03/2019 SUBJECTIVE: This is the afternoon after her surgery. She is awake and alert. Her bandage is dry. Her hemodynamics are satisfactory. Her drain has serosanguineous fluid. We will continue with the current course of treatment. I am pleased with her progress as is she. cc: Alfredito Thrasher MD
[2019-07-03] MEDS: LOVENOX SUBQ SCH (20:48)
[2019-07-03] MEDS: PERIDEX MT SCH (20:48)
[2019-07-04] MEDS: OFIRMEV 1000 MG/ISOTONIC SOLN 1,000 MG/100 ML BOTTLE IV SCH ×2 (04:30→09:21)
[2019-07-04] MEDS: NS 1,000 ML IV SCH ×3 (07:44→20:04)
[2019-07-04] MEDS: PERIDEX MT SCH ×2 (08:18→20:04)
[2019-07-04] MEDS: BUPRENEX IV PRN ×2 (09:19→16:28)
--- NOTE | 2019-07-04 10:53 | GENERAL SURGERY PROGRESS NOTE ---
DATE: 07/04/2019 SUBJECTIVE: She is postop day 1 after a sigmoid resection and repair of a colovesical fistula. She is generally well. She is comfortable. She is afebrile. OBJECTIVE: Heart rate 55, blood pressure 138/67. Her urine output is adequate. Her drain is serosanguineous and 55 mL. PLAN: The plan is to give her ice chips today, clear liquids tomorrow. We will leave her Jones in due to her bladder repair. I will cut her IV rate down as well. [facility] will cover the weekend. cc: Alfredito Thrasher MD
[2019-07-04] MEDS: LOVENOX SUBQ SCH (20:04)
[2019-07-05] MEDS: PERIDEX MT SCH ×2 (09:00→20:54)
[2019-07-05] MEDS: BUPRENEX IV PRN ×2 (11:04→20:54)
[2019-07-05] MEDS: NS 1,000 ML IV SCH (11:09)
[2019-07-05] MEDS ORDERED: PRILOSEC PO ONE (12:46)
[2019-07-05] MEDS ORDERED: TUMS PO SCH (13:00)
[2019-07-05] MEDS: TUMS PO PRN ×3 (13:22→20:54)
--- NOTE | 2019-07-05 13:49 | GENERAL SURGERY PROGRESS NOTE ---
DATE: 07/05/2019 SUBJECTIVE: Doing okay. Some soreness. No fevers. No tachycardia. Urine output has been adequate and clear. Her SHYANN drain serosanguineous. Abdomen is soft, appropriately tender. Reviewed her labs. There is nothing new today. ASSESSMENT AND PLAN: A 58-year-old female status post sigmoid colectomy with repair of colovesicular fistula. She is overall doing okay. We will continue out of bed and ambulating, Jones for now given the vesicular fistula repair. I reviewed her medications. She is on Lovenox and IV fluids. Will decrease those to 50 today and continue clear liquids. cc: MD Alfredito Simental MD
[2019-07-05] MEDS: LOVENOX SUBQ SCH (20:54)
[2019-07-06] MEDS: PRILOSEC PO SCH (06:06)
[2019-07-06] MEDS: NS 1,000 ML IV SCH ×2 (06:12→12:47)
[2019-07-06] MEDS: PERIDEX MT SCH ×2 (09:50→20:59)
[2019-07-06] MEDS ORDERED: TUMS PO PRN (11:41)
--- NOTE | 2019-07-06 14:28 | GENERAL SURGERY PROGRESS NOTE ---
DATE: 07/06/2019 SUBJECTIVE: Not passing flatus. She has had no fevers, no tachycardia. Urine output has been adequate. It is clear. Jones is in place. Abdomen is soft. SHYANN drain is serosanguineous. LABORATORY DATA: No new labs this morning. ASSESSMENT AND PLAN: A 58-year-old female status post sigmoid colectomy with repair of colovesicular fistula. We will continue current management pending return of bowel function. Keep her on clear liquids. cc: MD Alfredito Simental MD
[2019-07-06] MEDS: LOVENOX SUBQ SCH (20:59)
[2019-07-06] MEDS: BUPRENEX IV PRN (21:00)
[2019-07-07] MEDS: NS 1,000 ML IV SCH (04:04)
[2019-07-07] MEDS: PRILOSEC PO SCH (06:38)
[2019-07-07] MEDS: PERIDEX MT SCH ×2 (08:17→20:06)
[2019-07-07] MEDS ORDERED: SALINE LOCK IV FLUID XX ONE (12:10)
[2019-07-07] MEDS ORDERED: NORCO-7.5 PO PRN (12:11)
--- NOTE | 2019-07-07 18:29 | GENERAL SURGERY PROGRESS NOTE ---
DATE: 07/07/2019 She is now 4 days after her sigmoid colon resection. Her bowels moved last night. She is passing flatus. She is afebrile with stable hemodynamics. Her wound looks fine. Her drainage is serosanguineous. The plan today is to remove her drain, remove her Jones, advance her diet. Hopefully, we can discharge her tomorrow. cc: Alfredito Thrasher MD
[2019-07-07] MEDS: LOVENOX SUBQ SCH (20:06)
[2019-07-08] MEDS: PRILOSEC PO SCH ×2 (05:53→08:45)
[2019-07-08 07:31] VITALS: BP 116/82
[2019-07-08] MEDS ORDERED: LEVAQUIN PO SCH (09:00)
--- NOTE | 2019-07-08 09:27 | GENERAL SURGERY PROGRESS NOTE ---
DATE: 07/08/2019 SUBJECTIVE: Ms. Schilling is doing generally well. She is afebrile. She is eating. Her bowels have moved. Her wound looks fine. PLAN: The plan is to discharge her today. She will get Levaquin for a few days at home to be certain that her urine is sterile. She will return in a week for staple removal. I discussed activity, diet and wound care. cc: Alfredito Thrasher MD
--- NOTE | 2019-07-10 10:02 | DISCHARGE SUMMARY ---
ADMISSION DATE: 07/03/2019 DISCHARGE DATE: 07/08/2019 PRIMARY DISCHARGE DIAGNOSIS: Colovesical fistula. PRIMARY PROCEDURE: Sigmoid colon resection and repair of colovesical fistula. HISTORY: This is a 58-year-old with a long history of colovesical fistula. She is admitted for repair. HOSPITAL COURSE: Outpatient prep was accomplished. She was admitted the morning of the and underwent the above-noted procedure. Postoperatively, she did generally well. We did leave a drain. On the 1st postoperative day we allowed her ice chips. We decided to keep her Jones in for a few days longer because of her colovesical fistula repair. We started her on clear liquids on the 2nd postoperative day which she tolerated well. We did maintain her on Lovenox for DVT prevention. We did advance her diet subsequently each day. By 07/08 she was tolerating solid food, her bowels had moved, her wound was fine. We had removed her Jones uneventfully, removed her Charles drain uneventfully. It was felt she could be discharged home. Will give her 5 days of Levaquin to be certain her urine is sterilized. She will see me in the office in a week for staple removal. cc: Alfredito Thrasher MD
== END 2019-07-08 09:05 | disposition home or self-care (01) | DRG 654 ==
LOC: SURHOLD 05:16 → 4N 11:12
PROVIDERS: ADMIT Surgery; ATTEND Surgery